=== PATIENT | female | born 1975 | race Caucasian/White ===

== ENCOUNTER 2016-09-27 06:37 | Inpatient (IN) | payer OTHER, SELFPAY ==
[~2016-09-27] VITALS: Ht 160 cm; Wt 59.9 kg
[2016-09-27] MEDS ORDERED: NAPROXEN500 MG PO (07:23)
[2016-09-27] MEDS ORDERED: ORTHO TRI-CYCL1 EAC1 PO (07:23)
[2016-09-27] MEDS ORDERED: CLARITIN10 MG PO (07:23)
[2016-09-27] MEDS ORDERED: CRANBERRY250 MG PO (07:24)
[2016-09-27] MEDS ORDERED: FLONASE 0.05% N16 GM INH (07:24)
--- NOTE | 2016-09-27 18:22 | NUR ---
assit out of bed amb to chair scant vag bld noted reg diet tolerates tolerates sitting in chair well
--- NOTE | 2016-09-27 23:47 | NUR ---
PT. AMBULATED HALLWAY AT 1999 WITH STAFF AT HER SIDE WITHOUT ANY DIFFICULTY.
[2016-09-28 03:35] LABS: HEMOGLOBIN 12.3 gm/dl (12.3-15.3)
--- NOTE | 2016-09-28 10:40 | NUR ---
DC IV, PT TOLERATED WELL, DC'D TELE PER MD ORDER, AND REMOVED FROM PATIENT. PATIENT IS RESTING WELL. PATIENT HAS VOIDED ONLY A SMALL AMOUNT. WHEN SHE WAKES WILL RECHECK, REVISIT THAT.
[2016-09-28] MEDS ORDERED: COLACE 100MG C100 MG PO (12:57)
--- NOTE | 2016-09-28 14:09 | NUR ---
ESTRADIOL 1MG PO DLY # 30 WITH 12 REFILLS MOTRIN 600MG DAILY 1 PO EVERY 6 HOURS PRN FOR PAIN # 30 WITH 3 REFILLS COLACE 100MG 1 PO BID # 30 CAPLETS NORCO 10/325 1/2-1 EVERY 4 HOURS #30 NR
--- NOTE | 2016-09-28 14:12 | NUR ---
NEW PRESCRIPTIONS EDUCATION PROVIDED TO PATIENT, AND PATIENT INSTRUCTED SHE MAY CONTINUE FLONASE AND CLARITIN.
[2016-09-28] MEDS ORDERED: ESTRADIOL0.5 MG PO (14:34)
[2016-09-28] MEDS ORDERED: IBUPROFEN600 MG PO (14:35)
[2016-09-28] MEDS ORDERED: NORCO 10-325 T1 EACH PO (14:37)
== END 2016-09-28 14:52 | disposition home or self-care (01) | DRG 743 ==
LOC: ZOBSOF 06:37 → OB 10:52
PROVIDERS: ADMIT Obstetrics & Gynecology
PROC: 0UTC0ZZ Resection of Cervix, Open Approach (ICD-10-PCS; 2016-09-27)
PROC: 0UT20ZZ Resection of Bilateral Ovaries, Open Approach (ICD-10-PCS; 2016-09-27)
PROC: 0UT70ZZ Resection of Bilateral Fallopian Tubes, Open Approach (ICD-10-PCS; 2016-09-27)
PROC: 0UT90ZZ Resection of Uterus, Open Approach (ICD-10-PCS; principal; 2016-09-27 09:15)
DX: R87.613 High grade squamous intraepithelial lesion on cytologic smear of cervix (HGSIL) (principal); N89.6 Tight hymenal ring; Z79.3 Long term (current) use of hormonal contraceptives; Z79.1 Long term (current) use of non-steroidal anti-inflammatories (NSAID); Z79.899 Other long term (current) drug therapy; Z88.5 Allergy status to narcotic agent; Z88.6 Allergy status to analgesic agent; Z88.0 Allergy status to penicillin; Z88.2 Allergy status to sulfonamides; Z98.890 Other specified postprocedural states; Z82.49 Family history of ischemic heart disease and other diseases of the circulatory system
CPT/HCPCS: 84703; 85014; 85018; J1100; J1580; J1885; J2250; J2405; J2710; J2765; J2795; J3010; J7120